=== PATIENT | male | born 1985 | race Caucasian/White ===

== ENCOUNTER 2020-06-26 05:07 | Emergency (ER) | payer MEDICAID ==
[~2020-06-26] VITALS: Ht 167.6 cm; Wt 90.7 kg
[2020-06-26 05:09] VITALS: Ht 167.6 cm; Wt 90.7 kg
[2020-06-26 07:19] VITALS: BP 108/71
== END 2020-06-26 07:19 | disposition other institution (70) ==
LOC: ED 05:07
DX: S81.811A Laceration without foreign body, right lower leg, initial encounter (principal); S80.02XA Contusion of left knee, initial encounter; S00.81XA Abrasion of other part of head, initial encounter; S40.812A Abrasion of left upper arm, initial encounter; W22.8XXA Striking against or struck by other objects, initial encounter; Y93.89 Activity, other specified; Y92.89 Other specified places as the place of occurrence of the external cause; Y99.8 Other external cause status
CPT/HCPCS: 90715; J2001; Q0092

== ENCOUNTER 2020-06-26 05:07 | Emergency (ER) | payer OTHER | END 2020-06-26 07:19 | disposition other institution (70) | LOC: ED 05:07 | DX: Z02.89 Encounter for other administrative examinations (principal) ==